=== PATIENT | male | born 1965 | race Caucasian/White ===

== ENCOUNTER 2018-04-25 05:30 | Day surgery (SDC) | payer OTHER ==
[~2018-04-25] VITALS: Ht 185.4 cm; Wt 89.8 kg
[~2018-04-25 05:30] MED LIST: ANTIDEPRESSANT; Amoxicillin125 MG; BP MED; CHLO25; CHLO25 PO; CITA10S PO; Celexa40 MG PO; Citalopram HBr40 MG; Diovan Hct 80-1 EACH PO; Omeprazole20 M1; PRED20; Prilosec Otc20 MG PO; VALS80
--- NOTE | 2018-04-25 06:57 | NUR ---
History, Chart, Medications and Allergies reviewed before start of procedure.Patient confirms NPO status and agrees with scheduled surgery. Patient reports completing Chlorhexadine shower X2 prior to admission to hospital.Surgical site prepped with 2% Chlorhexidine cloth wipe.
--- NOTE | 2018-04-25 10:57 | NUR ---
norco 5mg po given per order. pt tolerating po water and crackers, no nausea.
--- NOTE | 2018-04-25 11:01 | NUR ---
report to bassam oviedo.
--- NOTE | 2018-04-25 11:08 | NUR ---
ASSUMED CARE OF PATIENT AT 1100 RECIEVED REPORT FROM Rick DE LA CRUZ INCISION SITES INTACT NO BLEEDING ICE PACK IN PLACE
--- NOTE | 2018-04-25 11:44 | NUR ---
Discharge instructions reviewed with patient. Patient verbalizes understanding. Copy given to patient to take home. PT STATES HE'S HAS A LITTLE NAUSEA, STATES COULD BE FROM PAIN PILL GIVEN, DENIES NEED FOR ANY MEDICATION NO SALTINE CRACKERS TO HELP. ENCOURAGED TO HAVE LIGHT MEAL WHEN HE GETS HOME. PT STATES THROAT IS SORE, HAS NPC AT TIME, ACTS LIKE HE IS TRYING TO CLEAR THROAT. NO OUTPUT. NO EMESIS. VSS. DRESSED W/ ASSIST FROM SIG OTHER MARÍA.
--- NOTE | 2018-04-25 11:51 | NUR ---
Discharged via wheelchair to private car for ride home.
== END 2018-04-25 11:49 | disposition home or self-care (01) ==
LOC: ORSCMMR 05:30 → ORD 07:30 → ORSCMMR 07:30
PROVIDERS: Surgery
PROC: 0YUA4JZ Supplement Bilateral Inguinal Region with Synthetic Substitute, Percutaneous Endoscopic Approach (ICD-10-PCS; principal; 2018-04-25 07:30)
PROC: 8E0W4CZ Robotic Assisted Procedure of Trunk Region, Percutaneous Endoscopic Approach (ICD-10-PCS; principal; 2018-04-25 07:30)
DX: K40.20 Bilateral inguinal hernia, without obstruction or gangrene, not specified as recurrent (principal); I10 Essential (primary) hypertension; Z87.891 Personal history of nicotine dependence; Z79.899 Other long term (current) drug therapy
CPT/HCPCS: 49650; S2900; 88304; C1781; J0690; J1885; J2250; J2710; J3010; J7120

== ENCOUNTER 2018-07-17 02:23 | Day surgery (SDC) | payer OTHER | END 2018-07-17 23:00 | disposition home or self-care (01) | LOC: RAD 02:23 | DX: M24.851 Other specific joint derangements of right hip, not elsewhere classified (principal); M87.9 Osteonecrosis, unspecified | CPT/HCPCS: 27093; 73525; 73722; Q9967 ==

== ENCOUNTER 2018-09-08 07:55 | Inpatient (IN) | payer OTHER ==
[~2018-09-08] VITALS: Ht 185.4 cm; Wt 93.5 kg
[~2018-09-08 07:55] MED LIST changes: +CITA20 PO; +Esgic Tablet1 EACH PO; +TRAM50 PO
--- NOTE | 2018-09-08 08:36 | NUR ---
INTO [facility] VIA WHEELCHAIR. PT REPORTS 5/10 RIGHT HIP/LEG PAIN. HISTORY AND ALLERGIES REVIEWED. LUNGS CLEAR. SATS>90% ON RA. PT APPEARS ANXIOUS. BP Surgical site prepped with 2% Chlorhexidine cloth wipe. 172/101. NPO STATUS CONFIRMED. Patient reports completing Chlorhexadine shower X2 prior to admission to hospital.NOZYN AND PERIDEX DONE PER PROCDURE.
--- NOTE | 2018-09-08 19:34 | NUR ---
SHIFT SUMMARY PT TO SURGICAL FLOOR FROM SURGERY THIS AFTERNOON. PT IS A/O. FAMILY HAS BEEN WITH PT. PT TOLERATING FOOD AND LIQUIDS. AQUACEL DRESSING IN PLACE ON R. HIP. PAIN HAS BEEN MANAGED WITH MEDICATION PRN PER ORDER.
[2018-09-09 05:00] LABS: BASOPHILS ABSOLUTE AUTO 0.02 K/mm3 (0.00-0.23); BASOPHILS PERCENT AUTO 0 % (0-2); EOSINOPHILS PERCENT AUTO 1 % (0-6); Hematocrit 33.1 % (37.0-53.0); Hemoglobin 10.8 g/dL (13.5-17.5); IMMATURE GRAN ABSOLUTE AUTO 0.01 K/mm3 (0.00-0.10); IMMATURE GRAN PERCENT AUTO 0 % (0-1); LYMPHOCYTES ABSOLUTE AUTO 0.82 K/mm3 (0.84-5.20); LYMPHOCYTES PERCENT AUTO 10 % (21-46); MONOCYTES ABSOLUTE AUTO 0.76 K/mm3 (0.16-1.47); MONOCYTES PERCENT AUTO 9 % (4-13); Mean Corpuscular HGB Conc 32.6 g/dL (31.5-36.5); Mean Platelet Volume 9.6 fL (9.1-12.4); NEUTROPHILS PERCENT AUTO 79 % (41-73); Platelet Count 138 K/mm3 (150-400); RDW Coefficient Variation 14.5 % (11.7-14.2); RDW Standard Deviation 55.8 fL (35.1-46.3); Red Blood Cell Count 3.18 M/mm3 (4.30-5.90); White Blood Cell Count 8.11 K/mm3 (4.00-11.30)
[2018-09-09 05:02] LABS: Mean Corpuscular Volume 104 fL (80-100)
[2018-09-09 05:25] LABS: Anion Gap 4 mmol/L (6-16); Blood Urea Nitrogen 12 mg/dL (8-24); Bun/Creatinine Ratio 14.8 (12.0-20.0); CO2, Blood 29 mmol/L (21-32); Calcium, Blood 7.9 mg/dL (8.5-10.1); Chloride, Blood 105 mmol/L (98-108); Creatinine, Blood 0.81 mg/dL (0.60-1.20); Glomerular Filtration Rate >60 (60-); Glucose, Blood 102 mg/dL (70-99); Magnesium, Blood 1.8 mg/dL (1.6-2.4); Sodium, Blood 138 mmol/L (136-145)
--- NOTE | 2018-09-09 06:09 | NUR ---
SHIFT SUMMARY PT A&O X4 T/O SHIFT. POD#0 L COREY; DRESSING TO HIP CDI T/O SHIFT. CRYOTHERAPY TO L HIP; PPPX4. PAIN MANAGED PER EMAR. PT UP TO BATHROOM WITH FWW AND SBA; TOLERATES WELL. RA; VSS. SCD'S AND JOHN'S TO BLE'S. TOLERATING PO INTAKE WELL. CALL LIGHT IN REACH; PT DEMONSTRATES USE. WCTM UNTIL REPORT TO DAY SHIFT RN.
--- NOTE | 2018-09-09 09:54 | NUR ---
09/09/18 0954 Chanel Lennon CHART VERIFICATIONS, EDITS.
[2018-09-09] MEDS ORDERED: ACET500 PO (11:16)
[2018-09-09] MEDS ORDERED: ASPI325EC PO (11:17)
[2018-09-09] MEDS ORDERED: OXYC5 PO (11:18)
--- NOTE | 2018-09-09 12:00 | NUR ---
DISCHARGE SUMMARY PT A&OX4, VSS, LEFT FLOOR VIA WC WITH MOM & SISTER AND ALL PERSONAL PROPERTY INCLUDING DISCHARGE PACKET AND 1 NARC SCRIPT. DISCHARGE INSTRUCTIONS PROVIDED. PT REP UNDERSTANDING THOSE INSTRUCTIONS INCLUDING AQUACEL DRESSING CHANGES, OKAY TO SHOWER, NO TUB BATHS OR JACUZZI, 2 WK FU WITH SURGEON, PHYSICAL THERAPY SCHEDULED. IV DC'D.
== END 2018-09-09 11:55 | disposition home or self-care (01) | DRG 470 ==
LOC: SURS 07:55 → PRE IP 10:30 → SURS 16:59
PROVIDERS: ADMIT Orthopaedic Surgery
PROC: 0SR90JZ Replacement of Right Hip Joint with Synthetic Substitute, Open Approach (ICD-10-PCS; principal; 2018-09-08 11:30)
DX: M87.051 Idiopathic aseptic necrosis of right femur (principal); I10 Essential (primary) hypertension; F32.9 Major depressive disorder, single episode, unspecified; F41.9 Anxiety disorder, unspecified; Z87.891 Personal history of nicotine dependence
CPT/HCPCS: 36415; 72170; 80048; 83735; 85025; 88300; 97116; 97162; 97530; C1776; J0171; J0690; J0735; J1885; J2250; J2405; J2704; J2795; J3010; J7120; Q0163

== ENCOUNTER 2019-02-09 09:25 | Observation (INO) | payer OTHER ==
[~2019-02-09] VITALS: Ht 185.4 cm; Wt 92.6 kg
[~2019-02-09 09:25] MED LIST changes: +ACET500 PO; +ASPI325EC PO; +OXYC5 PO
[2019-02-09] MEDS ORDERED: QUETIAPINE FUMA50 MG PO (09:53)
[2019-02-09 10:24] LABS: BASOPHILS ABSOLUTE AUTO 0.06 K/mm3 (0.00-0.23); BASOPHILS PERCENT AUTO 1 % (0-2); EOSINOPHILS ABSOLUTE AUTO 0.02 K/mm3 (0.00-0.68); EOSINOPHILS PERCENT AUTO 0 % (0-6); Hematocrit 47.5 % (37.0-53.0); Hemoglobin 16.1 g/dL (13.5-17.5); IMMATURE GRAN ABSOLUTE AUTO 0.01 K/mm3 (0.00-0.10); IMMATURE GRAN PERCENT AUTO 0 % (0-1); LYMPHOCYTES ABSOLUTE AUTO 0.71 K/mm3 (0.84-5.20); LYMPHOCYTES PERCENT AUTO 11 % (21-46); MONOCYTES ABSOLUTE AUTO 0.57 K/mm3 (0.16-1.47); MONOCYTES PERCENT AUTO 9 % (4-13); Mean Corpuscular HGB 33.6 pg (26.0-34.0); Mean Corpuscular HGB Conc 33.9 g/dL (31.5-36.5); Mean Corpuscular Volume 99 fL (80-100); Mean Platelet Volume 10.2 fL (9.1-12.4); NEUTROPHILS PERCENT AUTO 79 % (41-73); Platelet Count 198 K/mm3 (150-400); RDW Coefficient Variation 14.9 % (11.7-14.2); RDW Standard Deviation 55.2 fL (35.1-46.3); Red Blood Cell Count 4.79 M/mm3 (4.30-5.90); White Blood Cell Count 6.47 K/mm3 (4.00-11.30)
[2019-02-09 10:58] LABS: Alanine Aminotransfer (ALT/SGP 134 U/L (12-78); Albumin, Blood 3.9 g/dL (3.4-5.0); Alk Phos 174 U/L (50-136); Anion Gap 10 mmol/L (6-16); Aspartate Aminotrans (AST/SGOT 206 U/L (12-37); Bilirubin, Total 1.5 mg/dL (0.1-1.0); Blood Urea Nitrogen 9 mg/dL (8-24); Bun/Creatinine Ratio 10.5 (12.0-20.0); CO2, Blood 26 mmol/L (21-32); Chloride, Blood 105 mmol/L (98-108); Creatinine, Blood 0.86 mg/dL (0.60-1.20); Globulin, Blood 3.9 g/dL (2.2-4.0); Glomerular Filtration Rate >60 (60-); Glucose, Blood 94 mg/dL (70-99); Potassium, Blood 3.7 mmol/L (3.5-5.5); Sodium, Blood 141 mmol/L (136-145); Total Protein, Blood 7.8 g/dL (6.4-8.2); Troponin I <0.015 ng/mL (0.000-0.040)
--- NOTE | 2019-02-09 13:45 | NUR ---
ECHOCARDIOGRAM COMPLETED
[2019-02-09 14:04] LABS: CPK Creatine Kinase 115 U/L (39-308); Creatine Kinase MB 1.3 ng/mL (0.0-3.6); Creatine Kinase MB Index 1.1 (0.0-4.0); Ethanol (Alcohol), Blood, Med <3 mg/dL; Magnesium, Blood 1.7 mg/dL (1.6-2.4); Troponin I <0.015 ng/mL (0.000-0.040)
[2019-02-09 14:07] LABS: Phosphorus, Blood 2.8 mg/dL (2.5-4.9)
--- NOTE | 2019-02-09 17:45 | NUR ---
PATIENT ADMITTED FROM ER THIS SHIFT. HE HAS BEEN SLEEPING MOST OF THE DAY. PATIENTS ETOH CAME BACK AT <3 SO BANANA BAG WAS DC PER DOC ORDER. PATIENTS SIGNIFICANT OTHER WHO WORKS IN THE ER TALKED WITH THIS NURSE AND STATED THAT EVEN THOUGH THE PATIENT STATES HE NO LONGER DRINKS , HE REALLY DOES. SHE SAID HE USUALLY BEGINS IN THE EVENING AND WILL "DRINK A 5TH" . PATIENT DENIES HE DRINKS MORE THAN " A LITTLE BIT SOMETIMES" . CALL LIGHT WITHIN REACH
[2019-02-09 18:21] LABS: CPK Creatine Kinase 107 U/L (39-308); Creatine Kinase MB 1.1 ng/mL (0.0-3.6); Troponin I <0.015 ng/mL (0.000-0.040)
[2019-02-09 21:20] LABS: U Amphetamine Screen Not Detected; U Barbituate Screen Not Detected; U Benzodiazapine Screen DETECTED; U Buprenorphine Screen Not Detected; U Cannabinoids Screen DETECTED; U Cocaine Screen Not Detected; U Methadone Screen Not Detected; U Methamphetamine Screen Not Detected; U Opiates Screen Not Detected; U Oxycodone Screen Not Detected; U Phencyclidine Screen Not Detected; U Propoxyphene Screen Not Detected
--- NOTE | 2019-02-09 23:13 | NUR ---
NEG TROPONINS PT WITH 3RD NEG TROPONIN. PER MD, OKAY TO TAKE OFF NPO STATUS.
[2019-02-10 05:09] LABS: Anion Gap 8 mmol/L (6-16); Blood Urea Nitrogen 9 mg/dL (8-24); CHOL/HDL RATIO 2.3; CO2, Blood 25 mmol/L (21-32); Calcium, Blood 8.4 mg/dL (8.5-10.1); Chloride, Blood 104 mmol/L (98-108); Cholesterol 178 mg/dL (50-200); Glomerular Filtration Rate >60 (60-); Glucose, Blood 91 mg/dL (70-99); HDL Cholesterol 76 mg/dL (>39); LDL/HDL RATIO 1.2; Low Density Lipoprotein Chol 90 mg/dL (0-110); Magnesium, Blood 1.7 mg/dL (1.6-2.4); Phosphorus, Blood 3.3 mg/dL (2.5-4.9); Potassium, Blood 3.7 mmol/L (3.5-5.5); Sodium, Blood 137 mmol/L (136-145); Triglycerides 60 mg/dL (30-160); Very Low Density Lipoprot Chol 12 mg/dL (6-32)
--- NOTE | 2019-02-10 05:35 | NUR ---
SHIFT SUMMARY NO ACUTE EVENTS TONIGHT. DENIES CHEST PAIN OR PRESSURE. TELEMETRY IN PLACE , NSR @ 71 BPM. TROPONINS NEG. CIWA SCORE 5 TONIGHT. TOX SCREEN SENT TO LAB. AT BEDSIDE. A&OX4, INDEPENDENT IN ROOM. WILL CONT TO MONITOR AND PROVIDE CARE UNTIL PRESUMED BY ONCOMING RN.
--- NOTE | 2019-02-10 16:09 | NUR ---
SHIFT SUMMARY NO ACUTE CHANGES. PATIENT MEDICATED WITH ATIVAN X 1 FOR CIWA OF 8 THIS MORNING. PATIENT RESTING IN BED MOST OF SHIFT. GIRLFRIEND AT BEDSIDE. PATIENT DENIES PAIN OR SHORTNESS OF BREATH. PATIENT UP SBA FOR LINE MANAGEMENT. NATHANN HAD PART ONE OF STRESS TEST TODAY. CALL LIGHT IN REACH.
--- NOTE | 2019-02-10 16:23 | NUR ---
Patient is lying in bed and alert. Patient openly shares about his medical issues, his personal battles and the of his father last November. I provide empathic listening, spiritual guidance, grief support and prayer. Patient responds well and shows signs of an elevated mood.
[2019-02-11 03:07] LABS: HBSAG SCREEN Negative (Negative); HEP B CORE AB, TOT Negative (Negative); HEP C VIRUS AB <0.1 (0.0-0.9)
[2019-02-11 05:04] LABS: Alanine Aminotransfer (ALT/SGP 98 U/L (12-78); Albumin, Blood 3.1 g/dL (3.4-5.0); Alk Phos 132 U/L (50-136); Anion Gap 5 mmol/L (6-16); Aspartate Aminotrans (AST/SGOT 113 U/L (12-37); Bilirubin, Total 1.6 mg/dL (0.1-1.0); Blood Urea Nitrogen 14 mg/dL (8-24); Bun/Creatinine Ratio 17.4 (12.0-20.0); CO2, Blood 25 mmol/L (21-32); Calcium, Blood 8.2 mg/dL (8.5-10.1); Chloride, Blood 106 mmol/L (98-108); Globulin, Blood 3.2 g/dL (2.2-4.0); Glomerular Filtration Rate >60 (60-); Glucose, Blood 95 mg/dL (70-99); Potassium, Blood 3.9 mmol/L (3.5-5.5); Sodium, Blood 136 mmol/L (136-145); Total Protein, Blood 6.3 g/dL (6.4-8.2)
--- NOTE | 2019-02-11 06:12 | NUR ---
Shift Summary Patient slept intermittently overnight. Required PRN Ativan for reported DT symptoms, scoring CIWAs of 10 at 2116 and 0156. His main complaints were anxiety, tremor, and headache. Reported chest pain had resolved when asked.
--- NOTE | 2019-02-11 16:17 | NUR ---
SHIFT SUMMARY NO ACUTE CHANGES. PATIENT DENIES PAIN, NAUSEA, AND SHORTNESS OF BREATH. PATIENT REPORTS MILD ANXIETY. CIWA'S LESS THAN 4. PATIENT UP INDEPENDENT IN ROOM. SECOND HALF OF STRESS TEST COMPLETED THIS AFTERNOON. PATIETN NAPPING MOST OF SHIFT. GIRLFRIEND AT BEDSIDE. CALL LIGHT IN REACH.
--- NOTE | 2019-02-12 05:49 | NUR ---
Shift Assessment Patient slept well overnight. He offered no complaints of cp, and did not require PRN meds for CIWA scores.
--- NOTE | 2019-02-12 11:31 | NUR ---
DISCHARGE DISCAHRGE MEDICATIONS AND INSTRUCTIONS EXPLAINED TO PATIENT. PATIENT STATED UNDERSTANDING. FOLLOW UP WITH PCP SCHEDULED. IV REMOVED WITHOUT DIFFICULTY. BELONGINGS WITH PATIENT. PATIENT AMBULATED TO PRIVATE VEHICLE.
== END 2019-02-12 11:08 | disposition home or self-care (01) ==
LOC: ER 09:25 → MEDS 09:26 → ENPENDDIS 02-12 10:00 → MEDS 02-12 11:08
PROVIDERS: Emergency Medicine; Nurse Practitioner Acute Care; ADMIT Family Medicine
DX: R07.89 Other chest pain (principal); R74.8 Abnormal levels of other serum enzymes; F10.20 Alcohol dependence, uncomplicated; F41.8 Other specified anxiety disorders; R74.0 Nonspecific elevation of levels of transaminase and lactic acid dehydrogenase [LDH]; I10 Essential (primary) hypertension; F43.10 Post-traumatic stress disorder, unspecified; Z87.891 Personal history of nicotine dependence; Z88.8 Allergy status to other drugs, medicaments and biological substances; Z79.899 Other long term (current) drug therapy
CPT/HCPCS: 36415; 71046; 76705; 78452; 80048; 80053; 80061; 82550; 82553; 83690; 83735; 84100; 84443; 84484; 85025; 86317; 86704; 86708; 86803; 87340; 93005; 93010; 93017; 93306; 99285-25; A9500; G0480; J0706; J2060; J2785; J7030

== ENCOUNTER 2019-04-10 10:23 | Inpatient (IN) | payer OTHER ==
[~2019-04-10] VITALS: Ht 185.4 cm; Wt 93.0 kg
[~2019-04-10 10:23] MED LIST changes: +BUSP10 PO; +QUETIAPINE FUMA50 MG PO
--- NOTE | 2019-04-13 06:33 | NUR ---
PT ADMITTED TO [facility]. JUAREZ WITH PLANNED SURGERY. LUNG SOUNDS CLEAR.
--- NOTE | 2019-04-13 06:59 | NUR ---
NOZIN TO NARES BILATERALLY.
--- NOTE | 2019-04-13 16:53 | NUR ---
SHIFT SUMMARY PT IS POD#0 FROM A LEFT COREY. HE IS A/O X4 AND TOLERATING JELLO AND PO FLUIDS W/O NAUSEA. PT HAS VOIDED. WORKED WITH PHYSICAL THERAPY TODAY AND HAS AMBULATED TO BATHROOM AND DOWN THE MEHTA WITH WALKER AND STANDBY ASSIST. PAIN IS BEING MANAGED WITH PO PAIN MEDS PER ORDERS. POLAR PACK IN PLACE. FAMILY IS AT BEDSIDE. ASSISTED WITH ADL'S PRN.
--- NOTE | 2019-04-14 04:17 | NUR ---
SHIFT SUMMARY POD 1 LTHA. PT AA0X4, VSS. AQUACEL IN PLACE CDI. POLAR ADEOLA IN PLACE. PT HAS BEEN UP AND AMBULATING TO RESTROOM. PT VOIDING, TOLERATING PO WELL. MEDICATED FOR PAIN PER EMAR. PT HAS BEEN RESTING IN BED DURING SHIFT. PULSES PALPABLE/ SENSATION INTACT.
[2019-04-14 04:46] LABS: BASOPHILS ABSOLUTE AUTO 0.01 K/mm3 (0.00-0.23); BASOPHILS PERCENT AUTO 0 % (0-2); EOSINOPHILS ABSOLUTE AUTO 0.01 K/mm3 (0.00-0.68); EOSINOPHILS PERCENT AUTO 0 % (0-6); Hematocrit 31.7 % (37.0-53.0); Hemoglobin 10.6 g/dL (13.5-17.5); IMMATURE GRAN ABSOLUTE AUTO 0.05 K/mm3 (0.00-0.10); IMMATURE GRAN PERCENT AUTO 1 % (0-1); LYMPHOCYTES ABSOLUTE AUTO 0.69 K/mm3 (0.84-5.20); LYMPHOCYTES PERCENT AUTO 7 % (21-46); MONOCYTES ABSOLUTE AUTO 0.81 K/mm3 (0.16-1.47); MONOCYTES PERCENT AUTO 8 % (4-13); Mean Corpuscular HGB 33.4 pg (26.0-34.0); Mean Corpuscular HGB Conc 33.4 g/dL (31.5-36.5); Mean Platelet Volume 10.3 fL (9.1-12.4); NEUTROPHILS ABSOLUTE AUTO 8.88 K/mm3 (1.96-9.15); NEUTROPHILS PERCENT AUTO 85 % (41-73); Platelet Count 111 K/mm3 (150-400); RDW Coefficient Variation 13.1 % (11.7-14.2); RDW Standard Deviation 48.3 fL (35.1-46.3); Red Blood Cell Count 3.17 M/mm3 (4.30-5.90); White Blood Cell Count 10.45 K/mm3 (4.00-11.30)
[2019-04-14 04:50] LABS: Mean Corpuscular Volume 100 fL (80-100)
[2019-04-14 05:10] LABS: Anion Gap 7 mmol/L (6-16); Blood Urea Nitrogen 11 mg/dL (8-24); Bun/Creatinine Ratio 13.1 (12.0-20.0); CO2, Blood 29 mmol/L (21-32); Calcium, Blood 8.2 mg/dL (8.5-10.1); Chloride, Blood 97 mmol/L (98-108); Creatinine, Blood 0.84 mg/dL (0.60-1.20); Glomerular Filtration Rate >60 (60-); Glucose, Blood 127 mg/dL (70-99); Magnesium, Blood 1.5 mg/dL (1.6-2.4); Potassium, Blood 3.5 mmol/L (3.5-5.5); Sodium, Blood 133 mmol/L (136-145)
[2019-04-14] MEDS ORDERED: OXYC5 PO (09:11)
[2019-04-14] MEDS ORDERED: ACET500 PO (09:14)
[2019-04-14] MEDS ORDERED: ASPI81CH PO (09:15)
--- NOTE | 2019-04-14 10:42 | NUR ---
DISCHARGED DC'D IV, CATHETER INTACT. REVIEWED DC PAPERWORK; PT VERBALIZED UNDERSTANDING. PT LEFT UNIT IN WC W/POSSESSIONS, DRESSINGS, POLAR PACK, AND DC PAPERWORK ACCOMPANIED BY SPOUSE.
--- NOTE | 2019-04-14 11:36 | NUR ---
04/14/19 1136 Mariposa Talavera VERIFICATIONS: EDIT CHART.
== END 2019-04-14 09:40 | disposition home or self-care (01) | DRG 470 ==
LOC: SURS 04-13 05:36 → PRE IP 04-13 07:30 → SURS 04-13 11:24
PROVIDERS: ADMIT Orthopaedic Surgery
PROC: 0SRB04A Replacement of Left Hip Joint with Ceramic on Polyethylene Synthetic Substitute, Uncemented, Open Approach (ICD-10-PCS; principal; 2019-04-13 07:30)
DX: M16.12 Unilateral primary osteoarthritis, left hip (principal); I10 Essential (primary) hypertension; F41.9 Anxiety disorder, unspecified; F32.9 Major depressive disorder, single episode, unspecified; Z87.891 Personal history of nicotine dependence
CPT/HCPCS: 36415; 72170; 80048; 83735; 85025; 88300; 97110; 97161; 97530; C1776; J0171; J0330; J0690; J0735; J1100; J1885; J2250; J2405; J2704; J2710; J2765; J2795; J3010; J7120

== ENCOUNTER 2019-05-17 23:00 | Emergency (ER) | payer OTHER ==
[~2019-05-17] VITALS: Ht 188 cm; Wt 90.7 kg
[~2019-05-17 23:00] MED LIST changes: +ASPI81CH PO
[2019-05-17 23:31] LABS: BASOPHILS ABSOLUTE AUTO 0.03 K/mm3 (0.00-0.23); BASOPHILS PERCENT AUTO 0 % (0-2); EOSINOPHILS ABSOLUTE AUTO 0.01 K/mm3 (0.00-0.68); EOSINOPHILS PERCENT AUTO 0 % (0-6); Hematocrit 39.8 % (37.0-53.0); Hemoglobin 13.6 g/dL (13.5-17.5); IMMATURE GRAN ABSOLUTE AUTO 0.03 K/mm3 (0.00-0.10); IMMATURE GRAN PERCENT AUTO 0 % (0-1); LYMPHOCYTES ABSOLUTE AUTO 0.75 K/mm3 (0.84-5.20); LYMPHOCYTES PERCENT AUTO 9 % (21-46); MONOCYTES PERCENT AUTO 8 % (4-13); Mean Corpuscular HGB 33.7 pg (26.0-34.0); Mean Corpuscular HGB Conc 34.2 g/dL (31.5-36.5); Mean Corpuscular Volume 99 fL (80-100); Mean Platelet Volume 9.8 fL (9.1-12.4); NEUTROPHILS ABSOLUTE AUTO 6.81 K/mm3 (1.96-9.15); NEUTROPHILS PERCENT AUTO 82 % (41-73); Platelet Count 206 K/mm3 (150-400); RDW Coefficient Variation 13.2 % (11.7-14.2); RDW Standard Deviation 48.3 fL (35.1-46.3); Red Blood Cell Count 4.04 M/mm3 (4.30-5.90); White Blood Cell Count 8.33 K/mm3 (4.00-11.30)
[2019-05-17 23:52] LABS: Alanine Aminotransfer (ALT/SGP 47 U/L (12-78); Albumin, Blood 3.6 g/dL (3.4-5.0); Albumin/Globulin Ratio 0.9 (0.8-1.8); Alk Phos 153 U/L (50-136); Anion Gap 11 mmol/L (6-16); Aspartate Aminotrans (AST/SGOT 61 U/L (12-37); Bilirubin, Total 1.6 mg/dL (0.1-1.0); Blood Urea Nitrogen 9 mg/dL (8-24); Bun/Creatinine Ratio 9.8 (12.0-20.0); CO2, Blood 22 mmol/L (21-32); Calcium, Blood 9.6 mg/dL (8.5-10.1); Chloride, Blood 104 mmol/L (98-108); Creatinine, Blood 0.92 mg/dL (0.60-1.20); Globulin, Blood 3.9 g/dL (2.2-4.0); Glomerular Filtration Rate >60 (60-); Glucose, Blood 117 mg/dL (70-99); Potassium, Blood 3.6 mmol/L (3.5-5.5); Sodium, Blood 137 mmol/L (136-145); Total Protein, Blood 7.5 g/dL (6.4-8.2)
[2019-05-17 23:58] LABS: Troponin I <0.015 ng/mL (0.000-0.040)
[2019-05-18] MEDS ORDERED: PROM25 PO (00:52)
[2019-05-18] MEDS ORDERED: PROM25S PR (00:52)
== END 2019-05-18 01:02 | disposition home or self-care (01) ==
LOC: ER 23:00
PROVIDERS: Emergency Medicine
DX: E86.0 Dehydration (principal); R11.2 Nausea with vomiting, unspecified; I10 Essential (primary) hypertension; Z87.891 Personal history of nicotine dependence; Z88.8 Allergy status to other drugs, medicaments and biological substances; Z79.899 Other long term (current) drug therapy
CPT/HCPCS: 36415; 80053; 83690; 84484; 85025; 93005; 93010; 96361; 96374; 96375; 99284-25; A9270-GY; J1170; J2405; J2550; J7120

== ENCOUNTER 2019-10-05 09:37 | Day surgery (SDC) | payer OTHER ==
[~2019-10-05] VITALS: Ht 185.4 cm; Wt 85.7 kg
[~2019-10-05 09:37] MED LIST changes: +PROM25 PO; +PROM25S PR; +Seroquel Xr50 MG PO
== END 2019-10-05 12:46 | disposition home or self-care (01) ==
LOC: ORSCSDS 09:37
PROVIDERS: Student in an Organized Health Care Education/Training Program
PROC: 0DBK8ZX Excision of Ascending Colon, Via Natural or Artificial Opening Endoscopic, Diagnostic (ICD-10-PCS; principal; 2019-10-05 11:00)
PROC: 0DBL8ZX Excision of Transverse Colon, Via Natural or Artificial Opening Endoscopic, Diagnostic (ICD-10-PCS; principal; 2019-10-05 11:00)
PROC: 0DBN8ZX Excision of Sigmoid Colon, Via Natural or Artificial Opening Endoscopic, Diagnostic (ICD-10-PCS; principal; 2019-10-05 11:00)
DX: R19.7 Diarrhea, unspecified (principal); R15.0 Incomplete defecation; K63.5 Polyp of colon; D12.3 Benign neoplasm of transverse colon; D12.2 Benign neoplasm of ascending colon; F32.9 Major depressive disorder, single episode, unspecified; I10 Essential (primary) hypertension; F41.8 Other specified anxiety disorders; Z87.891 Personal history of nicotine dependence; Z79.899 Other long term (current) drug therapy
CPT/HCPCS: 88305; J2250; J2405; J2704; J7120